=== PATIENT | female | born 1960 | race Caucasian/White ===

== ENCOUNTER 2025-02-14 17:07 | Emergency (ER) | payer OTHER, SELFPAY ==
[2025-02-14 17:09] VITALS: BP 164/96
[2025-02-14 17:27] VITALS: BMI 28.8
[2025-02-14] MEDS: ZOFRAN 4 MG IV (17:59)
[2025-02-14] MEDS: TORADOL 15 MG IV (17:59)
[2025-02-14] MEDS: NSS 1000 IV (17:59)
[2025-02-14 18:17] LABS: Hematocrit 43.5 % (37.0-47.0); Hemoglobin 14.6 g/dL (12.0-16.0); Mean Corp Hgb Conc. 33.6 g/dL (33.0-37.0); Mean Corpuscular Volume 86.3 fL (81.0-99.0); Nucleated Red Blood Cells % 0 %; Platelet Count 265 10^3/uL (130-400); Red Cell Dist. Width 13.6 % (11.5-14.5)
--- NOTE | 2025-02-14 18:29 | ED.GENMED ---
History of Present Illness
General
Chief Complaint: Flank Pain
Source: patient
Exam Limitations: none
Time Seen by Provider: 02/14/25 17:16
Nursing documentation reviewed up to this point in time: agreed with
History of Present Illness
History of Present Illness:
Patient is a 64-year-old female who presents to the emergency department acute onset right flank pain. Patient states she was sitting on the couch around 12 PM today when she had acute onset pain in her right lower back. She initially thought
symptoms were a muscular spasm, which she does have a history of, but it was not relieved with her typical dose of Aleve. She then states pain seem to wrap around her right side into her right lower abdomen/groin. She has since developed nausea
and has had a few episodes of vomiting. She states severe pain waxes and wanes and describes it as 'labor pains'.
She denies any known inciting injury or trauma. No associated fever, anorexia, dysuria, or hematuria. No chest pain or shortness of breath.
She does not have a past history of kidney stones.
Past History
Past History
ED Past Medical History: Psychiatric (depression) and Other (Eczema)
ED Past Surgical History: Other (VV stripping)
Social History
Tobacco: Non-smoker
Alcohol: Occasional
Drug: None
Employment: Employed
Review of Systems
Review of Systems
Allergies reviewed?: Yes
All Other Systems: ROS reviewed and negative except as documented in HPI and ROS
Phy Exam
Physical Exam
Physical Exam:
Vitals: Hypertensive, otherwise vital signs stable. Afebrile
General: Patient is uncomfortable appearing, no acute distress
Skin: Warm and dry, no rashes or lesions
Head: Normocephalic, atraumatic
Eyes: Sclera nonicteric.
Throat: Protecting airway
Neck: Normal ROM, no cervical spine tenderness, no meningismus
Cardiac: Regular rate and rhythm, no murmurs.
Pulm: Normal respiratory effort, no wheezes, rales, rhonchi heard on exam
Abdomen: Abdomen soft. No reproducible tenderness. No tenderness McBurney's point.
Back: No midline spinal tenderness. No CVA tenderness. No rash
Extremities: No evidence of cyanosis or edema
Neuro: AAOx3. Grossly intact.
Psychiatric: Normal affect.
Course
Orders/Labs/Results
Orders:
Orders
02/14/25 17:45
Abdomen/Pelvis wo Contrast CT [CT Abd/pelvis Wo Iv Cont] Urgent
Comment:
Reason For Exam: Right flank pain
0.9% Sodium Chloride 1000 ml [Nss] 1,000 ml IV BOLUS
Ketorolac [Toradol] 15 mg IV NOW STA
Ondansetron Injectable [Zofran] 4 mg IV NOW STA
02/14/25 17:57
Complete Blood Count/With Diff Urgent
Comprehensive Metabolic Panel Urgent
Urinalysis Reflex To Culture Urgent
Date Specimen was Collected: 02/14/25
Time Specimen was Collected: 17:48
02/14/25 18:37
HYDROmorphone [Dilaudid] 0.5 mg IV NOW STA
02/14/25 20:15
Oxycodone [Roxicodone] 5 mg PO NOW STA
Abnormal Lab Results
02/14/25
17:57
WBC 14.4 H 10^3/uL
(4.8-10.8)
Abs Immat Gran (auto) 0.1 H 10^3/uL
(0-0.05)
Absolute Neuts (auto) 12.3 H 10^3/uL
(1.4-6.5)
Neutrophils % 85.4 H %
(42.2-75.2)
Lymphocytes % 11.1 L %
(20.5-51.1)
Glucose 104 H mg/dl
(70-99)
Calcium 11.0 H mg/dl
(8.4-10.2)
Urine Ketones 2+ A
(Negative)
02/14/25 17:57
02/14/25 17:57
Vital Signs
Initial and Last Documented VS:
Initial Vital Signs
Temp Pulse Resp BP Pulse Ox
97.8 F 72 18 164/96 98
02/14/25 17:09 02/14/25 17:09 02/14/25 17:09 02/14/25 17:09 02/14/25 17:09
Last Documented Vital Signs
Temp Pulse Resp BP Pulse Ox
97.7 F 87 20 162/92 97
02/14/25 19:20 02/14/25 19:20 02/14/25 19:20 02/14/25 19:20 02/14/25 19:20
MDM/Problems Addressed
Differential Diagnosis Includes:
Not limited to: Renal colic, pyelonephritis, cystitis, appendicitis, muscular strain/spasm, sciatica, etc.
MDM/Problems Addressed:
64-year-old female presents with acute onset right flank pain associated with vomiting. Denies fevers, dysuria, hematuria, or anorexia. No prior history of nephrolithiasis.
On arrival, vitals stable. Patient appears uncomfortable but in no acute distress. Physical exam without reproducible abdominal or back tenderness. No focal neurologic deficits. Cardiopulmonary exam unremarkable.
Laboratory evaluation demonstrates leukocytosis, possibly reactive in the setting of vomiting. Basic metabolic panel notable for mild hypercalcemia. Urinalysis without infection or hematuria. Non-contrast CT abdomen/pelvis reveals right-sided UPJ
obstruction without evidence of calculus.
Case discussed with urology blood donor unit assistant, who reviewed imaging. 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
While a musculoskeletal etiology is still considered, clinical presentation and imaging findings most consistent with UPJ obstruction. No evidence of associated infection or other acute intra-abdominal pathology. Patient�s pain improved during ED
course.
Given overall stability, improvement in symptoms, and absence of infection or obstructing stone, patient is appropriate for discharge with supportive care and outpatient urology follow-up. Advised use of oral analgesics as needed, maintain
hydration, and monitor for recurrent or worsening symptoms. Strict return precautions reviewed, including fever, worsening flank pain, vomiting, or inability to tolerate fluids. Patient verbalized understanding and agreement with plan.
Chronic conditions affecting care:
N/A
Acute Exacerbation and/or Progression of Chronic Illness:
N/A
*Radiology
Radiology exam reviewed: radiology read reviewed
*Pulse Oximetry
SaO2: 98
Oxygen Mode of Delivery: Room air
Patient hypoxic: no
*EKG
Interpreted by ED Provider?: NA
*[employer] Interpretation
Rate: [employer]- N/A
*Critical Care Note
Total Time (30-74mins, 75-104mins- exclusive of procedures): Not Applicable
Patient Management
Discussion with other providers: Books Salesperson (Case discussed with urology)
ED Attending Note
-
Portions of this chart may have been created with voice recognition software.� Occasional wrong word or��sound alike� substitutions may have occurred due to the inherent limitations of voice recognition software.
Discharge Plan
Departure
Patient Disposition: Home (Routine Discharge)
Date of Disposition: 02/14/25
Time of Disposition: 20:11
Patient with high blood pressure during this ER visit?: Yes
Condition: Good
Discharge Problem:
Obstruction of right ureteropelvic junction (UPJ)
Instructions: Flank Pain (DC), BLOOD PRESSURE
Prescriptions:
New
oxycodone 5 mg tablet
5 mg PO Q6H PRN (Reason: Pain) Qty: 7 0RF
ondansetron 4 mg tablet,disintegrating
4 mg PO Q8H PRN (Reason: nausea and vomiting) Qty: 7 0RF
No Action
dextroamphetamine-amphetamine 10 MG tablet
10 mg PO PRN PRN (Reason: ADD)
escitalopram oxalate 10 MG tablet
10 mg PO DAILY
sulfamethoxazole-trimethoprim 1 TABLET tablet
1 tab PO BID Qty: 20 0RF
hydrocodone-acetaminophen 5-325 mg tablet
1 tab PO Q6H PRN (Reason: pain) Qty: 14 0RF
Referrals:
Dori Escoto MD [Family Provider, Family Practice]
Malvin Nichols MD [Active, Urology] - Next open appointment
Activity Restrictions/Additional Instructions:
RETURN TO THE EMERGENCY DEPARTMENT ANY FEVER, CHILLS, INTRACTABLE PAIN, INTRACTABLE NAUSEA/VOMITING, INABILITY TO URINATE, SYMPTOMS OF A URINARY TRACT INFECTION, WORSENING IN CURRENT SYMPTOMS, OR ANY OTHER CONCERNS
- As discussed�your CT scan showed findings consistent with a right UPJ obstruction. The urologist feels that this is likely congenital.
- You can take 600 mg of ibuprofen every 6-8 hours as needed for pain. You can take Tylenol, in addition if needed. For intractable pain, you can take oxycodone which has been sent to your pharmacy. This may cause drowsiness and you should not
take prior to driving.
- Please stay well-hydrated.
- Follow-up with urology for further evaluation/management. The contact information has been provided for you above.
Monitor your symptoms very closely and return to the emergency department with any acute worsening/new symptoms or any signs of infection
Interventions
Interventions:
*Risk Screen - Suicide Last Done: 02/14/25 17:13
*General Assessment Last Done: 02/14/25 17:28
*Neglect/Abuse Screening Last Done: 02/14/25 17:26
*ED- Fall Risk Assessment Last Done: 02/14/25 17:28
*ED COVID-19 Vaccine History Last Done: 02/14/25 17:27
*ED Influenza Vaccine History Last Done: 02/14/25 17:28
*Nursing Disposition Last Done: 02/14/25 20:40
EX-Fsznxx-Obmiinqgoj Assessment Last Done: 02/14/25 19:33
ED-Female Genitourinary Assessment Last Done: 02/14/25 19:34
Discharge Date and Time
Discharge Date/Time: 02/14/25 20:40
Print Language: KYRGYZ
[2025-02-14 18:32] LABS: ALT (SGPT) 30 U/L (0-35); AST (SGOT) 25 U/L (14-36); Albumin 4.6 g/dl (3.5-5.0); Alkaline Phosphatase 67 U/L (38-126); Blood Urea Nitrogen 15 mg/dl (7-17); Calcium 11.0 mg/dl (8.4-10.2); Carbon Dioxide 26 mmol/L (22-30); Chloride 104 mmol/L (98-107); Estimated Creatinine Clearance 84 ml/min; Glucose 104 mg/dl (70-99); Potassium 4.1 mmol/L (3.5-5.1); Sodium 137 mmol/L (135-145); Total Protein 7.2 g/dl (6.3-8.2); eGFR > 60.00
[2025-02-14 18:40] LABS: Urine Character Cloudy (Clear)
[2025-02-14] MEDS: DILAUDID 0.5 MG IV (18:40)
[2025-02-14 19:20] VITALS: BP 162/92
[2025-02-14] MEDS: ROXICODONE 5 MG PO (20:29)
== END 2025-02-14 20:40 | disposition home or self-care (01) ==
LOC: EMR 17:07
PROVIDERS: Physician Assistant; EMERGENCY PHYSICIAN Emergency Medicine; FAMILY PHYSICIAN Family Medicine
DX: N13.5 Crossing vessel and stricture of ureter without hydronephrosis (principal); F32.A Depression, unspecified; L30.9 Dermatitis, unspecified; E83.52 Hypercalcemia
CPT/HCPCS: 99284; 96374; 96375; 96361; 74176; 80053; 81003; 85025

== ENCOUNTER 2025-03-19 06:10 | Day surgery (SDC) | payer OTHER, SELFPAY ==
[2025-03-11 14:05] VITALS: BMI 28.9
--- NOTE | 2025-03-11 14:42 | PTCARENOTE ---
Abnormal ECG done 03/11/[address] Wills, no further interventions required.
[2025-03-19] VITALS (12 sets, daily range): BP systolic 10–162; BP diastolic 70–94; BMI 28.9
[2025-03-19 07:07] LABS: Glucose - Point of Care 100 mg/dl (70-99)
[2025-03-19] MEDS: NORMOSOL-R/PLASMALYTE-A 1000 IV ×3 (07:14→17:32)
--- NOTE | 2025-03-19 11:35 | PTCARENOTE ---
Received patient from PACU at 1130. Patient AAOx3, no c/o pain at present. Call deleon in reach, daughter at bedside.
[2025-03-19] MEDS: ULTRAM 50 MG PO ×2 (13:03→19:32)
--- NOTE | 2025-03-19 14:00 | PTCARENOTE ---
Patient again asking to go to bathroom and void in toilette. RN explained to patient, that she will not be able to void and the catheter will drain her bladder. Patient states, 'If I can't pee won't my kidney get backed up.'
--- NOTE | 2025-03-19 15:21 | PTCARENOTE ---
Patient c/o feeling like needs to urinate, but can't. RN discussed with the patient and her daughter that the catheter will drain her urine. She does not have to worry about going to the bathroom. Patient c/o uncomfortable feeling and burning like
she has to urinate. Pyridium given at 1158 with relief. Patient c/o RLQ pain 6/10 Tramadol given at 1303. Patient ambulated to bathroom to have BM. Patient c/o right lower back pain (chronic). Patient encouraged to sit in chair.
--- NOTE | 2025-03-19 15:30 | PTCARENOTE ---
Patient sleeping. No s/s of discomfort, Gardiner draining WNL >100ml/hr Daughter at bedside.
[2025-03-19] MEDS: COLACE 100 MG PO ×2 (17:15→21:19)
[2025-03-19] MEDS: LOVENOX 40 MG SC (17:15)
[2025-03-19] MEDS: TORADOL 15 MG IV ×2 (17:16→23:28)
[2025-03-19] MEDS: MAGNESIUM OXIDE 400 MG PO (21:19)
[2025-03-20] MEDS: ULTRAM 50 MG PO ×2 (02:26→10:31)
[2025-03-20 03:04] VITALS: BP 125/64
[2025-03-20] MEDS: TORADOL 15 MG IV ×2 (05:22→12:37)
[2025-03-20 07:35] VITALS: BP 121/63
[2025-03-20] MEDS: COLACE 100 MG PO (08:20)
[2025-03-20] MEDS: LEXAPRO 20 MG PO (08:20)
[2025-03-20] MEDS: CLARITIN 10 MG PO (08:21)
[2025-03-20] MEDS: NORMOSOL-R/PLASMALYTE-A 1000 IV (08:22)
--- NOTE | 2025-03-20 09:32 | W.PN.URO.CBU ---
Today's Communication / Plan
-
Maintain LASHA drain on discharge - drain teaching by RN appreciated
F/U in office tomorrow AM (03/21) for drain removal by RN
Discharge home later today
D/w patient.
D/w RN.
Assessment / Plan
-
Right UPJO
03/19: s/p robotic right dismembered pyeloplasty
Meeting all post-op clinical milestones.
LASHA drain w/ SSF as expected - however outputs >50 cc q2-4 hrs (likely from post-op ambulation).
Given output >400 cc over 18 hrs, advise removal on POD#2 in office.
Diagnosis
-
Date of Service: March 20, 2025
-
Patient Diagnosis:
Right UPJO
Post Op Day:
03/19: s/p robotic right dismembered pyeloplasty
Subjective
-
Mild incisional pain w/ ambulation and position change.
Eager to have breakfast.
Voiding w/o issues.
Objective
-
Vital Signs
Temp Pulse Resp BP Pulse Ox
98.3 F 74 17 125/64 95
03/20/25 03:04 03/20/25 03:04 03/20/25 03:04 03/20/25 03:04 03/20/25 03:04
Intake and Output
03/19/25 03/20/25 03/21/25
06:59 06:59 06:59
Intake Total 1884
Output Total 2224 120 / 120
Balance -340 / -340 -120 / -120
Intake:
Oral fluids 960 / 960
IV fluids (Total) 925 / 925
normosol 100 / 100
Output:
Drain Output (Total) 350 / 350 120 / 120
Right Abdomen Severino-Gunn 350 / 350 120 / 120
Urine, Abdifatah 1874 / 1874
Other:
Number of approximated MODERATE 1
amounts of urine
Physical Exam
-
General - well developed, well nourished, no acute distress
Abdomen - soft, non-tender, no incisional pain or distention, right LASHA drain w/ SSF output
Skin - warm & dry with no rash
Extremities - no clubbing, no cyanosis, no edema
Incision - clean, dry
Dressing - clean, dry, intact
Care Review
Data Reviewed
Discussed with: Nursing
Total Time Spent with Patient (in minutes): 45
--- NOTE | 2025-03-20 09:36 | W.DS.TRANS ---
DC Summary - Virtualization Engineer
-
Discharge Instructions:
Sleep Apnea Risk Low
Discharge Diagnosis/Procedures s/p right robotic pyeloplasty for uretero-pelvic
junction obstruction
Diet No restrictions
Activity No strenuous activity
Driving Restrictions no driving while taking Tramadol
Bathing Restrictions OK to Shower
Wound Care Please follow up in the office on Wednesday 03/21
morning (10:15 AM) for LASHA drain assessment and
removal.
Instructions:
Stand-Alone Forms:
Changes to Home Medications: No
Discharge Medications:
DC Medications w/original date entered in imeem
dextroamphetamine-amphetamine 10 mg tablet 15 mg PO DAILY 02/09/21
escitalopram oxalate 10 mg tablet 20 mg PO DAILY 02/09/21
ashwagandha root extract 300 mg tablet 600 mg PO NOON 03/12/25
fexofenadine 180 mg tablet 180 mg PO DAILY 03/12/25
ibuprofen 200 mg-phenylephrine HCl 10 mg tablet (Advil Sinus Congestion-Pain) 1 tab PO Q4H PRN sinus congestion 03/12/25
magnesium glycinate 120 mg (as glycinate) capsule 240 mg PO HS 03/12/25
tirzepatide 15 mg/0.5 mL subcutaneous pen injector (Mounjaro) 15 mg SC QWEEK 03/12/25
naproxen sodium 220 mg capsule (Aleve) 440 mg (2 x 220 mg) PO BID PRN pain #1 cap 03/19/25
tramadol 50 mg tablet 50 mg PO TID PRN severe pain #10 tabs 03/19/25
Home Medication Changes
Pending Results: No
Total time spent discharging patient (in min): 51
--- NOTE | 2025-03-20 11:17 | CM ---
Alert awake oriented pt who lives alone but dgt Ruddy will be staying with patient.Home is 2 story with 3 steps to enter and 14 steps to bed /bathroom.Pt has a LASHA drain that will be removed tomorrow am at MD office. Offered VN she declined need.
NO Adaptive devices.
NO VN /SNF hx
Pharmacy [facility]
PCP DR Escoto
PLAN Home no needs
[2025-03-20 11:40] VITALS: BP 110/69
[2025-03-20 18:29] LABS: Hepatitis C Antibody Negative (Negative)
== END 2025-03-20 13:51 | disposition home or self-care (01) ==
LOC: SDS 06:10
PROVIDERS: ATTENDING PHYSICIAN Specialist; FAMILY PHYSICIAN Family Medicine
DX: N13.5 Crossing vessel and stricture of ureter without hydronephrosis (principal); N30.20 Other chronic cystitis without hematuria; N13.1 Hydronephrosis with ureteral stricture, not elsewhere classified; N23 Unspecified renal colic
CPT/HCPCS: 50544; 36415; 82962; 86803; 86850; 86900; 86901; 88305; 93005; C1729